=== PATIENT | female | born 1955 | race Caucasian/White ===

== ENCOUNTER 2023-07-21 05:08 | Observation (INO) ==
--- NOTE | 2023-06-15 09:17 | PAT Medication Instructions ---
Medication Instructions Date of Service June 15, 2023 Home Medications atorvastatin 20 mg tablet (Lipitor) 20 mg PO HS famotidine 40 mg tablet 40 mg PO HS omeprazole 40 mg capsule,delayed release 40 mg PO QAM amlodipine 10 mg tablet 10 mg PO QAM chlorpheniramine-acetaminophen 2 mg-325 mg tablet 1 tab PO Q6H PRN Cold Symptoms fluticasone furoate 200 mcg-vilanterol 25 mcg/dose inhalation powder (Breo Ellipta) 1 inh inhalation QAM levothyroxine 125 mcg tablet 125 mcg PO QAM losartan 25 mg tablet 25 mg PO QAM DO NOT take the morning of surgery chlorpheniramine-acetaminophen 2 mg-325 mg tablet 1 tab PO Q6H PRN Cold Symptoms losartan 25 mg tablet 25 mg PO QAM Take morning of surgery With a small sip of water, OTHERWISE NOTHING TO EAT OR DRINK AFTER MIDNIGHT: omeprazole 40 mg capsule,delayed release 40 mg PO QAM amlodipine 10 mg tablet 10 mg PO QAM fluticasone furoate 200 mcg-vilanterol 25 mcg/dose inhalation powder (Breo Ellipta) 1 inh inhalation QAM levothyroxine 125 mcg tablet 125 mcg PO QAM Take evening before surgery atorvastatin 20 mg tablet (Lipitor) 20 mg PO HS famotidine 40 mg tablet 40 mg PO HS chlorpheniramine-acetaminophen 2 mg-325 mg tablet 1 tab PO Q6H PRN Cold Symptoms (if needed) Other Notes If you have any questions please call us at [phone] or [phone] or [phone] or [phone]
--- NOTE | 2023-06-20 11:14 | Anesthesiology Consultation ---
Date of Service June 20, 2023 Assessment & Plan (1) Encounter for pre-operative examination: - Outpatient joint assessment: Pt currently scheduled for inpatient pathway. If surgeon requests review for outpatient joint pathway, patient is an acceptable candidate for outpatient joint program from anesthesia standpoint pending surgeon's office assessment that patient is motivated, has good support and completes [facility] preop requirements. - Infectious disease screening: Per assessment on 06/20/23: No known infectious disease contacts. Patient reports seen by PCP 06/13 for viral illness (cough, congestion)- OTC management recommended. Covid home test 06/09 was negative. DOS not until 07/21/22. Patient indicates at PAT visit 06/20/23 that symptoms have al most entirely resolved. Very mild residual congestion/post nasal drip. Patient advised to contact PAT/surgeon if symptoms not resolved/at baseline prior to DOS. Patient okay to proceed with current surgery date as scheduled without further preop Covid testing or precautions as long as resolution in symptoms prior to DOS. - Patient states she has visit with PCP scheduled prior to surgery. Patient acceptable risk for surgery pending pending upcoming PCP office visit (Dr. Mary Rios, appt 07/14). Chart Review Chart Review: Patient seen in Pre Admission Testing Teaching & Discussion Pre-Anesthesia Teaching/Discussion Notes: Instructed NPO after midnight before surgery,except medications with 15 cc of water. Medication instructions provided according to the PAT guidelines. History Surgery Operation Date: 07/21/23 07:00 Proposed Procedures p Right Anterior Total Hip Arthroplasty - Akin Ramos DO Height/Weight Height: 5 ft 5 in Weight: 73.2 kg Allergies Allergy/AdvReac Type Severity Reaction Status Date / Time losartan AdvReac Unknown Cough Verified 06/20/23 11:17 Medications Home Medications Medication Instructions Recorded Confirmed Last Taken atorvastatin 20 mg tablet (Lipitor) 20 mg PO HS 11/01/22 06/14/23 Unknown famotidine 40 mg tablet 40 mg PO HS 11/01/22 06/14/23 Unknown omeprazole 40 mg capsule,delayed 40 mg PO QAM 11/01/22 06/14/23 Unknown release amlodipine 10 mg tablet 10 mg PO QAM 06/14/23 06/14/23 Unknown chlorpheniramine-acetaminophen 2 1 tab PO Q6H PRN Cold Symptoms 06/14/23 06/14/23 Unknown mg-325 mg tablet fluticasone furoate 200 1 inh inhalation QAM 06/14/23 06/14/23 Unknown mcg-vilanterol 25 mcg/dose inhalation powder (Breo Ellipta) levothyroxine 125 mcg tablet 125 mcg PO QAM 06/14/23 06/14/23 Unknown chlorthalidone 1 tab PO DAILY 06/20/23 06/20/23 Unknown Past Medical History Medical History Pulmonary nodule CT chest 04/2023 GERD (gastroesophageal reflux disease) Hypothyroidism Dyslipidemia History of COVID-19 10/2021- resolved Reactive airway disease HTN (hypertension) Osteoarthritis of right hip Exercise / Class Metabolic Activity III < 4 Walking/Shop/Light housework (one FS (no CP, occasional SOB)) Past Family History Family History Other No family history of adverse response to anesthesia Past Surgical History Surgical History History of esophagogastroduodenoscopy (EGD) Hx of colonoscopy History of myomectomy Past Anesthesia History No Hx of Anesthesia Complications and No Family Hx of Anesthesia Complications History of PONV No Hx of PONV and No Hx of Motion Sickness Social History Smoking Status: Never smoker Do You Dip or Chew Tobacco: No Hx Alcohol Use: Yes alcohol intake frequency: a few times a month Hx Substance Use: No substance use type: does not use Review of Systems Chronic cough r/t drainage/reflex. Occasional palpitations. Patient denies chest pain, shortness of breath, fever, chills, wheezing. Physical Exam Vital Signs VITALS BP 129/83 P 94 TEMP 98.4 SP02 98%RA RESP 16 PHYSICAL Full cervical extension range of motion. Full TMJ range of motion. TMD 2.5 finger breaths (small chin) Mallampati Score 1 Dentition: intact, crown (molar) Lungs: clear throughout to auscultation Cardiac: regular rate and rhythm, no murmurs noted Spine: normal Carotid arteries: negative bruit Extremities: no LE edema Lab Results Anesthesia Preop Results Results Anesthesia Widget: WBC 5.08 K/ul (4.8-10.8) 06/20/23 Hgb 13.8 g/dl (12.0-16.0) 06/20/23 Hct 41.4 % (37.0-47.0) 06/20/23 Plt 384 K/uL (130-400) 06/20/23 Na 136 mmol/L (136-145) 06/20/23 K 4.0 mmol/L (3.5-5.1) 06/20/23 Cl 101 mmol/L (98-107) 06/20/23 CO2 26 mmol/L (21-32) 06/20/23 BUN 16 mg/dl (6-23) 06/20/23 Creat 0.88 mg/dl (0.6-1.2) 06/20/23 Glucose Level 121 mg/dl (70-99(Fasting)) H 06/20/23 PT 10.4 Seconds (9.0-12.0) 06/20/23 PTT 25 Seconds (21-31) 06/20/23 INR 0.9 (0.9-1.1) 06/20/23 Blood Type A Positive 06/20/23 Antibody Screen NEGATIVE 06/20/23 Testing Laboratory Results 06/12/23 TSH 0.46 FREE T4 1.76 Electrocardiogram Date: 06/20/23 NSR at 88bpm. Chest X-Ray Date: 06/20/23 FINDINGS: Lung volumes are normal. Linear left lower lung densities represent atelectasis or scarring. There is no pneumothorax or pleural effusion. There is mild cardiomegaly. Mediastinal contours are normal. There is no evidence for pulmonary edema. IMPRESSION: No acute cardiopulmonary findings. Stress Test Date: 09/10/20 Type: nuclear Stress EKG findings with no ischemic changes. Rest EF 55-60%. Post-rest EF 65 to 70%. Negative stress echo for ischemia. Patient achieved 1 minute and stage 2 of Terrell protocol, due to the low workload the test is less sensitive for diagnosis of myocardial ischemia. "The stress was inadequate" *Stress test reviewed by PCP. Per PCP note (06/20/23), "She does not have anginal symptoms at this time. I don't think we need to repeat a stress test unless there are noted EKG changes" > Preop EKG done 06/20/23 unremarkable*
--- NOTE | 2023-07-20 11:27 | History & Physical Report ---
Date of Service July 20, 2023 Assessment & Plan (1) Osteoarthritis of right hip: We will proceed with a right anterior total of arthroplasty. Postoperatively she will be on our outpatient joint protocol. She will be discharged home on aspirin. She plans to go to [facility] [place] physical therapy tomorrow. History of Present Illness Chief Complaint: Osteoarthritis of the right hip. Primary Care Provider: Mary Rios DO Janell is a pleasant 68-year-old female who has been dealing with chronic increasing right hip pain. The initial hip x-rays do not look too bad. I send her for an MRI of the hip. The MRI showed a large area of arthritis of her right hip. We have been trying to treat it conservatively. She has had couple of injections. The injections gave her significant relief, but they only last briefly. After failing extensive conservative treatment, she has elected to proceed with a right anterior total hip arthroplasty. . Allergies Allergy/AdvReac Type Severity Reaction Status Date / Time losartan AdvReac Unknown Cough Verified 06/20/23 11:17 chlorthalidone AdvReac Dizziness Verified 07/17/23 12:38 (per PCP records) Home Medications Medication Instructions Recorded Confirmed Type atorvastatin 20 mg tablet (Lipitor) 20 mg PO HS 11/01/22 06/14/23 History famotidine 40 mg tablet 40 mg PO HS 11/01/22 06/14/23 History omeprazole 40 mg capsule,delayed 40 mg PO QAM 11/01/22 06/14/23 History release amlodipine 10 mg tablet 10 mg PO QAM 06/14/23 06/14/23 History chlorpheniramine-acetaminophen 2 1 tab PO Q6H PRN Cold Symptoms 06/14/23 06/14/23 History mg-325 mg tablet fluticasone furoate 200 1 inh inhalation QAM 06/14/23 06/14/23 History mcg-vilanterol 25 mcg/dose inhalation powder (Breo Ellipta) levothyroxine 125 mcg tablet 125 mcg PO QAM 06/14/23 06/14/23 History chlorthalidone 1 tab PO DAILY 06/20/23 06/20/23 History Past Med/Surg History Medical History Pulmonary nodule CT chest 04/2023 GERD (gastroesophageal reflux disease) Hypothyroidism Dyslipidemia History of COVID-19 10/2021- resolved Reactive airway disease HTN (hypertension) Osteoarthritis of right hip Surgical History History of esophagogastroduodenoscopy (EGD) Hx of colonoscopy History of myomectomy Family History Other No family history of adverse response to anesthesia Social History Smoking Status: Never smoker Second Hand Exposure: No; Do You Dip or Chew Tobacco: No; Tobacco Cessation Education Requested by Patient: No Hx Alcohol Use: Yes Hx Substance Use: No Preferred Language: Japanese Communication Ability: Effective Academic Associate Required: No Beliefs That Will Affect Care: None Current Living Situation: Spouse Other Information That Helps Us Care for You: No Feels Safe at Home: Yes Safety Concerns: Feels Safe At This Time Assistive Devices: Contacts and Glasses Review of Systems All systems reviewed & are unremarkable except as noted in HPI & below. Physical Exam . Constitutional WD/WN, vitals as above Eyes PERRL, conjunctivae normal, anicteric sclerae ENMT external ear and nose normal, oropharynx normal Neck trachea midline, no thyromegaly Respiratory normal respiratory effort Cardiovascular RRR, no murmur, no edema Gastrointestinal (Abdomen) normal bowel sounds, soft, nontender, no hepatosplenomegaly Psychiatric A+Ox3, euthymic affect Results & Data Results & Data Laboratory Results . Diagnostic Findings X-rays and MRI of the right hip do show some osteoarthritis with some joint space narrowing and bony edema.. PG Care Time/CCT Total # of Minutes Spent Total Time Spent with Patient: Total time spent is greater than 50% in coordination of care (as documented) at patient's floor/unit and/or counseling patient: Coding Level of Care Code None Diagnoses Osteoarthritis of right hip M16.11
[2023-07-21] MEDS ORDERED: FAMOTIDINE 20 MG TAB PO SCH (06:00)
[2023-07-21] MEDS ORDERED: dexAMETHasone**PF** 10 MG/ML VIAL IV SCH (06:00)
[2023-07-21] MEDS ORDERED: ROPIV 0.5% 246mg, Ketorolac 30mg, EPINEPHrine 0.5mg in NSS INFIL SCH (06:00)
[2023-07-21] MEDS ORDERED: ACETAMINOPHEN 500 MG TAB PO SCH (06:00)
[2023-07-21] MEDS ORDERED: LR 500ML BOLUS, THEN 15ML/HR IV SCH (06:00)
[2023-07-21] MEDS ORDERED: GABAPENTIN 300 MG CAP PO SCH (06:00)
[2023-07-21] MEDS ORDERED: ceFAZolin 2000MG 2,000 MG/15 ML SYR IV SCH (06:00)
[2023-07-21] MEDS ORDERED: TRANEXAMIC ACID 1,000 MG **IV Pre-op IV SCH (06:00)
[2023-07-21] MEDS ORDERED: LR 60ML/HR IV SCH (06:00)
[2023-07-21] MEDS ORDERED: TRANEXAMIC ACID 1,000 MG **IV Intra-op IV SCH (06:00)
[2023-07-21] MEDS ORDERED: ONDANSETRON INJ 2 MG/ML 2 ML VIAL IV PRN ×2 (06:23→14:39)
[2023-07-21] MEDS ORDERED: ATROPINE SULFATE 0.1 MG/ML 10ML SYR IV PRN (06:23)
[2023-07-21] MEDS ORDERED: ePHEDrine sulfate 50 MG/ML AMP IV PRN (06:23)
[2023-07-21] MEDS ORDERED: MEPIVACAINE HCL 1.5% 30 ML VIAL ONE (06:27)
[2023-07-21] MEDS ORDERED: fentaNYL citrate PF 100 MCG/2 ML VIAL ONE ×2 (06:32→07:40)
[2023-07-21] MEDS ORDERED: MIDAZOLAM HCL 1 MG/ML 2ML VIAL ONE ×2 (06:32→07:31)
[2023-07-21] MEDS ORDERED: ORTHO JOINT ANESTHETIC ONE (06:36)
--- NOTE | 2023-07-21 06:52 | History & Physical Bridge Note ---
Date of Service July 21, 2023 History & Physical Bridge Note I have examined the patient, reviewed the History & Physical and in the interval since the performance of the History & Physical I have noted the following changes of clinical significance: no changes noted
[2023-07-21] MEDS ORDERED: PROPOFOL IV EMULSION 10 MG/ML 20 ML VIAL IV ONE ×2 (08:03→08:07)
[2023-07-21] MEDS ORDERED: PHENYLEPHRINE 100MCG/ML 10ML SYR IV ONE (08:07)
[2023-07-21] MEDS ORDERED: KETOROLAC 30 MG/ML VIAL ONE (08:07)
[2023-07-21] MEDS ORDERED: ONDANSETRON INJ 2 MG/ML 2 ML VIAL ONE (08:07)
--- NOTE | 2023-07-21 08:20 | Operative Report ---
PG Post Operative Report Pre & Post Diagnosis Operation Date: 07/21/23 07:00 Pre-Op Diagnosis: Osteoarthritis of right hip Post-Op Diagnosis: Osteoarthritis of right hip I identified the patient and participated in the time-out.: Yes Procedure Operation Date: 07/21/23 07:00 Actual Procedures p Right Anterior Total Hip Arthroplasty(Right) - Akin Ramos DO Surgeon Akin Ramos DO Burr Bench Hand Akin Avery PA-C Estimated Blood Loss 200 Findings Consistent with Post-Op Diagnosis Specimens Right femoral head Description of Procedure Implants used I used a ZimmerBiomet total hip arthroplasty system with a size 1 standard offset Avenir Complete stem, a 48 mm G7 cup with a 25mm screw, an E1 polyethylene liner, a 32 mm ceramic head with a 0 neck. Janell arrived at the hospital for the above procedure. She was seen in the preoperative holding area and the operative extremity was identified and signed. She was given a spinal anesthetic, a preoperative antibiotic, and TXA. She was then taken back to the operating room and laid on the table in the supine position. She was given basic sedation. The operative leg was secured to a Puristst leg positioner. The hip was then prepped and draped in sterile fashion. A timeout was done and the patient and the operative extremity was properly identified. An anterior approach was used. Dissection was taken down through the fascia and the tensor muscle belly was retracted laterally and the rectus was retracted medially. The circumflex vessels were identified and ligated. The capsule was then incised and tagged for later repair. The femoral neck was then cut and the femoral head was removed. The acetabulum was exposed. Time was spent doing a complete circumferential labral release. Sequential reaming of the acetabulum up to a size 47 reamer was done. Final reamings were done under fluoroscopy to ensure appropriate version. A Biomet 48 mm G7 cup was then impacted into place. A single 25 mm screw was placed. The E1 polyethylene liner was then snapped into place. Surrounding soft tissues were then injected with 100 cc of an orthopedic pain control cocktail. The proximal femur was then exposed. Sequential broaching up to a size 1 broach was done. Off that broach a size 32 head with a 0 neck was trialed. The hip was reduced and fluoroscopic images showed anatomic alignment of the implants in acceptable length. The broach was removed. The final size 1 standard offset Avenir Complete stem was then impacted into place. A ceramic 32 mm head with a 0 neck was then impacted onto the stem and the hip was reduced. Final fluoroscopic images showed anatomic alignment of the hip. The capsule was then closed with #1 Vicryl suture. A dilute betadyne lavage was then done for 3 minutes. The joint was then irrigated with normal saline solution. The fascia was closed with #1 PDS suture. Skin was closed with 2-0 Vicryl, lorena, and a Silverlon dressing. She was then transferred to a hospital bed and taken to the post anesthesia care unit in stable condition. She tolerated the procedure well. Akin Avery PA-C, was present for the entire procedure. He was critical for patient positioning, prepping, draping, retraction exposure, wound closure and application of sterile dressing. I attest to the content of the Intraoperative Record and any orders documented therein. Any exceptions are noted below.
[2023-07-21] MEDS ORDERED: oxyCODONE/ACETAMINOPHEN 5mg/325mg TAB PO PRN (08:33)
[2023-07-21] MEDS: fentaNYL citrate PF 100 MCG/2 ML VIAL IV PRN ×4 (08:50→09:08)
--- NOTE | 2023-07-21 09:07 | XRay Report ---
SINGLE VIEW PELVIS; SINGLE VIEW RIGHT HIP CLINICAL HISTORY: Postoperative examination. FINDINGS: An AP portable view of the hips and pelvis with a crosstable lateral portable view of the r ight hip are obtained. No prior studies are available for comparison at the time of dictation. A bipo lar right hip arthroplasty is in near-anatomic alignment. A single cortical lag screw transfixes the acetabular cup. No acute fracture is identified. There are expected postoperative changes overlying t he right hip including skin clips, subcutaneous gas, and soft tissue swelling. Mild degenerative paz ge is noted in the left hip. There is degenerative sclerosis of the pubic symphysis. IMPRESSION: Expected postoperative findings status post right hip arthroplasty. No acute fracture is seen. ACT 112: Negative or not required by law. Electronically signed by: Thompson Blank M.D. 07/21/2023 9:05 AM
--- NOTE | 2023-07-21 10:13 | Fluoroscopy Report ---
INTRAOPERATIVE RADIOGRAPH CLINICAL HISTORY: Right hip arthroplasty. Fluoro time: 19 seconds Ka,r: 1.79 mGy FINDINGS: A single spot fluoroscopic view of the right hip is correlated with radiographs dated 06/20. A bipolar right hip arthroplasty is in near anatomic alignment. A single cortical lag screw tr ansfixes the acetabular cup. There is no evidence of acute fracture on this single spot image. IMPRESSION: Intraoperative image from a right hip arthroplasty procedure. Electronically signed by: Thompson Blank M.D. 07/21/2023 10:12 AM
--- NOTE | 2023-07-21 11:49 | Anesthesiology Progress Note ---
Date of Service July 21, 2023 Anesthesia Post Procedure Vital Signs Vital Signs: Temp Pulse Resp BP BP Pulse Ox O2 Del Method 07/21/23 10:25 36.5 C 79 20 98/60 L 97 Room Air 07/21/23 09:55 36.5 C 81 19 122/61 96 Room Air 07/21/23 09:25 36.4 C L 77 18 109/67 95 Room Air 07/21/23 09:20 36.4 C L 79 16 109/62 95 Room Air 07/21/23 09:10 76 14 117/65 94 Room Air 07/21/23 09:00 77 16 117/68 98 Room Air 07/21/23 08:50 76 20 113/67 99 Oxymask 07/21/23 08:40 83 16 102/58 L 99 Oxymask 07/21/23 08:36 36.3 C L 95 H 10 L 101/50 L 99 Oxymask 07/21/23 05:45 36.7 C 94 H 20 156/88 H 96 Room Air O2 Flow Rate 07/21/23 10:25 07/21/23 09:55 07/21/23 09:25 07/21/23 09:20 07/21/23 09:10 07/21/23 09:00 07/21/23 08:50 3 07/21/23 08:40 6 07/21/23 08:36 6 07/21/23 05:45 Pain Intensity Right Hip: Pain Intensity: 4 Transfer of Care Handoff Completed per policy Notes Mental Status: alert / awake / arousable Patient Amnestic to Procedure: Yes Nausea / Vomiting: adequately controlled Pain: adequately controlled Airway Patency, RR, SpO2: stable & adequate BP & HR: stable & adequate Hydration State: stable & adequate Anesthetic Complications: no major complications apparent and Pt Satisfied with anesthetic care
[2023-07-21] MEDS ORDERED: bisacodyL 10 MG SUPP PR PRN (14:39)
[2023-07-21] MEDS ORDERED: NALOXONE HCL 0.4 MG/1 ML VIAL/CARP IV PRN (14:39)
[2023-07-21] MEDS ORDERED: traMADol HCL 50 MG TABLET PO PRN (14:39)
[2023-07-21] MEDS ORDERED: METOCLOPRAMIDE HCL INJ 5 MG/ML 2 ML VIAL IV PRN (14:39)
[2023-07-21] MEDS ORDERED: MAGNESIUM HYDROXIDE SUSP 30 ML UDC PO PRN (14:39)
[2023-07-21] MEDS ORDERED: HYDROmorphone INJ 0.5 MG/0.5 ML SYR IV PRN (14:39)
[2023-07-21] MEDS ORDERED: ACETAMINOPHEN PO PRN (15:47)
[2023-07-21] MEDS ORDERED: CHLORPHENIRAMINE PO PRN (15:47)
[2023-07-21] MEDS ORDERED: COUGH DROP (SUGAR FREE) LOZ 24 LOZ/1 BOX BUCCAL ONE (16:14)
[2023-07-21] MEDS: SODIUM CHLORIDE 0.9% 1,000 ML IV SCH (16:15)
[2023-07-21] MEDS: KETOROLAC TROMETHAMINE 15 MG/ML VIAL IV SCH ×2 (16:17→20:43)
[2023-07-21] MEDS: ceFAZolin 2000MG 2,000 MG/15 ML SYR IV SCH ×2 (17:44→22:45)
[2023-07-21] MEDS: DOCUSATE SODIUM 100 MG CAP PO SCH (20:42)
[2023-07-21] MEDS: ASPIRIN 81 MG ECTAB PO SCH (20:43)
[2023-07-21] MEDS ORDERED: ATORVASTATIN 20 MG TAB PO SCH (21:00)
[2023-07-21] MEDS ORDERED: FAMOTIDINE 40 MG TABLET PO SCH (21:00)
[2023-07-21] MEDS ORDERED: SENNA 8.6 MG TAB PO SCH (21:00)
[2023-07-21] MEDS: ACETAMINOPHEN 500 MG TAB PO SCH (22:44)
[2023-07-22] MEDS: SODIUM CHLORIDE 0.9% 1,000 ML IV SCH (01:55)
[2023-07-22] MEDS: KETOROLAC TROMETHAMINE 15 MG/ML VIAL IV SCH ×2 (01:55→07:53)
[2023-07-22] MEDS: oxyCODONE HCL IR 5 MG TAB (IMMEDIATE RELEASE) PO PRN ×2 (02:16→12:26)
[2023-07-22] MEDS: ACETAMINOPHEN 500 MG TAB PO SCH (06:11)
[2023-07-22] MEDS ORDERED: LEVOTHYROXINE SODIUM 125 MCG TABLET PO SCH (06:30)
[2023-07-22] MEDS: DOCUSATE SODIUM 100 MG CAP PO SCH (07:53)
[2023-07-22] MEDS: ASPIRIN 81 MG ECTAB PO SCH (07:54)
[2023-07-22] MEDS ORDERED: dexAMETHasone 4 MG TAB PO SCH (08:00)
--- NOTE | 2023-07-22 08:24 | Orthopedic Progress Note ---
Date of Service July 22, 2023 Assessment & Plan (1) Status post right hip replacement: Overall she is doing fairly well. She is not having much pain in the right hip. She will be seen by physical therapy today for ambulation and range of motion exercises. She is on aspirin for DVT prophylaxis. She can be discharged home later today. She will follow-up with orthopedics in 2 weeks. Pati Maciel was seen and examined at bedside this morning. Overall she is doing better. She was initially supposed be in our outpatient joint protocol but she was just feeling a little bit too tired and lightheaded to pass physical therapy yesterday. We decided to keep her overnight. She is feeling better today. She is having some pain in the right hip. She has been up and ambulating to the bathroom. She has no new complaints.. Review of Systems All systems reviewed & are unremarkable except as noted in HPI & below. Physical Exam On physical examination of the right hip, the dressing is clean and dry. Her leg is out full extension. She has active dorsiflexion plantarflexion of the right ankle.. Results & Data Results & Data Laboratory Results . Diagnostic Findings Postoperative x-rays of the right hip show the prosthesis to be in anatomic alignment without any evidence of fracture complication, or loosening.. PG Care Time/CCT Total # of Minutes Spent Total Time Spent with Patient: Total time spent is greater than 50% in coordination of care (as documented) at patient's floor/unit and/or counseling patient: Coding Level of Care Code 69260 Post Operative Follow-Up Diagnoses Status post right hip replacement Z96.641
--- NOTE | 2023-07-22 08:25 | Discharge Summary ---
Date of Service July 22, 2023 Admission HPI (Per Admitting) Janell is a pleasant 68-year-old female who has been dealing with chronic increasing right hip pain. The initial hip x-rays do not look too bad. I send her for an MRI of the hip. The MRI showed a large area of arthritis of her right hip. We have been trying to treat it conservatively. She has had couple of injections. The injections gave her significant relief, but they only last briefly. After failing extensive conservative treatment, she has elected to proceed with a right anterior total hip arthroplasty. . Admission Exam (Per Admitting) . Principal Diagnosis Same as "Discharge Diagnosis" noted below under Discharge Instructions. Discharge Exam On physical examination of the right hip, the dressing is clean and dry. Her leg is out full extension. She has active dorsiflexion plantarflexion of the right ankle.. Discharge Data Procedures Performed Operation Date: 07/21/23 07:00 Actual Procedures p Right Anterior Total Hip Arthroplasty(Right) - Akin Ramos DO Ordered Studies 07/21/23 07:00 FL hip RT 1V Routine Hospital Course (1) Status post right hip replacement: On January 19, 2024 Mary arrived at [facility] and underwent a right hip replacement without complication. She had a spinal anesthetic. Postopera tively she was supposed to be on our outpatient joint protocol. Unfortunately she was very lethargic and dizzy postoperatively. She did not do very well with physical therapy. The decision was made to keep her overnight. On postop day #1 she was doing fairly well. She was feeling better. She is on aspirin for DVT prophylaxis. She was working well with physical therapy. She was then discharged home. She will follow-up with orthopedics in 2 weeks. PG Care Time/CCT Total # of Minutes Spent Total Time Spent with Patient: Total time spent is greater than 50% in coordination of care (as documented) at patient's floor/unit and/or counseling patient: Discharge Plan Discharge Items Patient Disposition: Home - Self-Care Reason For Visit: POST SURGICAL CARE Discharge Diagnosis: Right hip replacement Activity: Per Instructions section Non-emergency contact: Surgeon Call non-emergency contact if: your wound has increased redness and your wound has increased drainage Follow-up/Referrals: [facility] [Outside] (as per surgeon's office ) Akin Ramos DO [Physician] - Mary Rios DO [Primary Care Provider] - Diet: Regular Addtl Attending Provider Instructions: Activity and Therapy Recommendations: * If you are using [facility] then therapy will be provided at your home until they feel you have accomplished all of your goals. * If you are using [facility] then Physical Therapy will be provided until they feel you are ready to start Outpatient Physical Therapy. * If you are not using home therapy then Outpatient Physical Therapy should start about 3-5 days from your day of surgery. Therapy will last about 6-10 weeks * You were shown a series of exercises in the hospital. Do these exercises three times each day including the exercises you were shown in physical therapy. * Get up and walk several times each day.~ For the first four weeks, try not to stand or walk for more than one hour at a time. If you do stand or walk for more than one hour, you will not hurt anything, but your leg will likely swell.~~ * As you feel comfortable, you may change from the walker or crutches to a cane and~then to independent walking. Medications: * Narcotic You will likely be sent home from the hospital with a prescription for the narcotic pain medication that worked best throughout your stay. * Cefadroxil -take the antibiotic twice a day for 10 days to help prevent infection. * Aspirin Most patients will be required to take Aspirin 81mg twice a day for 6 weeks after surgery. This is obtained [id number] and a prescription is not necessary. * Other medications may be prescribed for specific circumstances. If you have any questions, please call the office at . * Resume previous home medications unless otherwise instructed TEDs/Elastic Stockings: The white elastic stockings help limit swelling and prevent blood clots from forming in your legs. The more you wear them, the more they work. Wear them for six weeks. Dressing Care: Leave the Silverlon dressing in place for 7 days. After 7 days you may remove the dressing. If the incision is not draining then you may leave the lorena open to air. If there is a little bit of drainage or if the lorena are getting stuck on your clothing then cover the incision with a dry dressing. The lorena will be removed at your 2 week follow-up appointment. Showering: You may shower with the Silverlon dressing in place. Do not let the shower spray hit the dressing directly. Pat the Silverlon dressing dry. If the dressing becomes wet underneath, then simply remove the dressing. Keep the incision dry until you are 7 days out from the day of surgery. After 7 days you may remove the Silverlon dressing and shower with the lorena exposed. Let soapy water run over the lorena and pat them dry. Do not scrub or soak the incision. Things To Watch For: * Drainage from the incision site that occurs more than one week after your surgery. * Increased redness at the incision site. * Fever above 102 degrees Fahrenheit. * Unusual chest pain or shortness of breath. * Call [facility] at with any of the above problems Follow-Up Visit: Follow-up with Dr. Ramos's PA (Akin Avery) 2-3 weeks after your day of surgery. He will remove your lorena and answer any questions. If you have any additional questions or concerns, Dr Ramos is usually in the office at the same time and will be available An appointment was probably scheduled when you signed-up for surgery in the office. If you have any questions call Office Instructions: More detailed instructions as well as Frequently Asked Questions were provided in a folder by our office when you signed-up for surgery. Please review these instructions when you get home. If you have any further questions or concerns, please feel free to call the office at [phone] Pending Studies at Discharge: No Stand-Alone Forms: Anesthesia/Sedation, Adult, [facility] Medications and DC Order Prescriptions: New celecoxib [Celebrex] 200 mg capsule 200 mg PO Q12H PRN (Reason: pain) Qty: 30 0RF aspirin 81 mg tablet,delayed release (DR/EC) 81 mg PO BID Qty: 60 0RF cefadroxil 500 mg capsule 500 mg PO BID 10 Days Qty: 20 0RF oxycodone 5 mg tablet 5 mg PO Q6H PRN (Reason: pain) Qty: 30 0RF Continued atorvastatin [Lipitor] 20 mg tablet 20 mg PO HS omeprazole 40 mg capsule,delayed release(DR/EC) 40 mg PO QAM famotidine [Pepcid] 40 mg tablet 40 mg PO HS amlodipine 10 mg Tablet 10 mg PO QAM levothyroxine 125 mcg Tablet 125 mcg PO QAM fluticasone furoate-vilanterol [Breo Ellipta] 200-25 mcg/dose Blister With Device 1 inh INHALATION QAM chlorpheniramine-acetaminophen 2-325 mg Tablet 1 tab PO Q6H PRN (Reason: Cold Symptoms) Discharge Orders: Discharge Order (Routine); Ordered 07/22/23 Ordered By: kAin Ko/Other Patient Handouts: Preventing Deep Vein Thrombosis Admission Data Admit Date/Time: 07/21/23 14:39 Attending Provider: Akin Ramos Admit Provider: Akin Ramos Primary Care Provider: Mary Rios
[2023-07-22] MEDS ORDERED: FLUTICASONE/VILANTEROL 200/25MCG 14 PUFFS/INHALER INH SCH (09:00)
[2023-07-22] MEDS ORDERED: amLODIPine BESYLATE 5 MG TAB PO SCH (09:00)
[2023-07-22] MEDS ORDERED: MULTIVITAMIN TAB PO SCH (09:00)
[2023-07-22] MEDS ORDERED: PANTOprazole 40 MG TAB PO SCH (09:00)
[2023-07-23] MEDS ORDERED: FAMOTIDINE 20 MG TAB PO SCH (21:00)
== END 2023-07-22 13:07 | disposition home or self-care (01) ==
LOC: ASU 05:08 → 3E 05:08